=== PATIENT | female | born 1935 | race Caucasian/White ===

== ENCOUNTER → 2017-05-23 | Outpatient (CLI) | payer OTHER ==
[~2017-05-23] MED LIST: ACYCLOVIR PO; ADVAIR 1001 DISK W/D PO; ATIVAN PO; CARDIZEM CD240 M1; COUMADIN4 MG; DICLOFENAC PO; DIOVAN HCT 160/1 TAB PO; EFFEXOR XR PO; EFFEXOR XR150 MG; FLEXERIL PO; FUROSEMIDE40 MG; HYDROCODON-ACE1 EAC1; MEDROL PO; NASACORT AQ16.5 GM; NEXIUM PO; VICODIN 5/500 T1 TAB PO; VICODIN PO
== END | disposition home or self-care (01) ==
LOC: SLAB 14:07
DX: H53.2 Diplopia (principal)
CPT/HCPCS: 36415